=== PATIENT | female | born 1995 | race African-American/Black ===

== ENCOUNTER 2019-07-08 19:58 | Emergency (ER) | payer OTHER ==
[2019-07-08 23:06] LABS: HIV (1/2) Antibody/Antigen Non-Reactive (NonReactive); HIV 1/2 INDEX 0.08 S/CO (<1.00); Hep C IgG Ab Non-Reactive (NonReactive); Hep C Index 0.05 S/CO (0-0.79)
[2019-07-08 23:07] LABS: HBSAB Concentration 236.96 mIU/mL; Hep B Surf AB Reactive (NonReactive)
== END 2019-07-08 20:40 | disposition home or self-care (01) ==
LOC: ERS 19:58
DX: Z77.21 Contact with and (suspected) exposure to potentially hazardous body fluids (principal)
CPT/HCPCS: 36415; 86706; 86803; 87389; 99283